=== PATIENT | male | born 2000 ===

== ENCOUNTER 2025-03-08 17:51 | Emergency (ER) | payer OTHER ==
[~2025-03-08] VITALS: Ht 180.3 cm; Wt 91.0 kg
[2025-03-08] MEDS ORDERED: ACETAMINOPHEN 500 MG TAB PO ONE (22:45)
[2025-03-09] MEDS ORDERED: DIPHTH,PERTUSS(ACELL),TET VAC 0.5 ML SYRINGE IM ONE (00:15)
[2025-03-09 00:52] VITALS: BP 125/80
== END 2025-03-09 00:50 | disposition other institution, planned readmission (95) ==
LOC: ED 17:51
DX: S00.03XA Contusion of scalp, initial encounter (principal); W17.89XA Other fall from one level to another, initial encounter
CPT/HCPCS: 70450; 70486; 71045; 90471; 90715; 99284-25; A9270